=== PATIENT | female | born 1990 ===

== ENCOUNTER → 2022-02-05 09:53 | Outpatient (BNVA) | payer MEDICARE, MEDICAID, SELFPAY | PROVIDERS: PCP Nurse Practitioner Family; Referring Provider Nurse Practitioner Family; Visit Provider Orthopaedic Surgery | DX: M48.062 Spinal stenosis, lumbar region with neurogenic claudication (principal) | CPT/HCPCS: 72110; 73502; 99204 ==

== ENCOUNTER 2022-03-07 11:20 | Outpatient (CLI) | payer MEDICARE, MEDICAID, SELFPAY ==
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
[2022-03-07] MEDS: gadobenate dimeglumine 20 mL vial IV (12:33)
== END 2022-03-07 11:21 | disposition home or self-care (01) ==
LOC: RAD 11:30
PROVIDERS: PCP Nurse Practitioner Family; Visit Provider Orthopaedic Surgery
DX: M48.062 Spinal stenosis, lumbar region with neurogenic claudication (principal); Z09 Encounter for follow-up examination after completed treatment for conditions other than malignant neoplasm
CPT/HCPCS: 72158; 99213